=== PATIENT | female | born 1960 | race Asian ===

== ENCOUNTER → 2023-04-22 | Outpatient (CLI) | payer BC, OTHER, SELFPAY ==
[~2023-04-22] MED LIST: ADVA115INH INH; BIOTCAP PO; BLOOD BUILDER PO; CITRTAB18 PO; COEN100C PO; HYALCAP PO; IBUP80TA PO; LOVA1CAP16 PO; METF750T PO; VICO5TAB PO; [UNRECOGNIZED DRUG - CODE] PO; [UNRECOGNIZED DRUG - OTHER] PO
== END ==
LOC: M SOG 09:01
PROVIDERS: ATTEND Orthopaedic Surgery
DX: M40.50 Lordosis, unspecified, site unspecified (principal); M25.511 Pain in right shoulder; M85.811 Other specified disorders of bone density and structure, right shoulder

== ENCOUNTER 2023-07-12 15:08 | Emergency (ER) | payer BC ==
[~2023-07-12] VITALS: Ht 162.6 cm; Wt 62.0 kg
[2023-07-12] MEDS ORDERED: RA T500C2 PO (15:40)
[2023-07-12] MEDS ORDERED: XALA0.007 OU (15:40)
[2023-07-12] MEDS ORDERED: RAMI1CAP24 (15:40)
[2023-07-12 18:52] LABS: BASO % 0.3 % (0.0-1.0); HEMOGLOBIN 13.7 g/dl (12.0-15.5); LYMPH # 0.4 10^3/uL (1.5-5.0); LYMPH % 4.6 % (24.0-44.0); MEAN CORPUSCULAR HEMOGLOBIN 22.5 pg (27.0-33.0); MEAN CORPUSCULAR HGB CONC 31.9 g/dl (32.0-36.5); MEAN CORPUSCULAR VOLUME 70.6 fl (80.0-96.0); MONO # 0.7 10^3/uL (0.0-0.8); MONO % 9.3 % (2.0-8.0); NEUTROPHILS # 6.6 10^3/uL (1.5-8.5); NEUTROPHILS % 85.3 % (36.0-66.0); PLATELET COUNT, AUTOMATED 177 10^3/uL (150-450); RED BLOOD COUNT 6.09 10^6/uL (4.00-5.40); WHITE BLOOD COUNT 7.8 10^3/uL (4.0-10.0)
[2023-07-12 18:56] LABS: RSV AMPLIFICATION NEGATIVE (NEGATIVE)
[2023-07-12 19:20] LABS: CK-MB VALUE MASS < 1.0 NG/ML (<3.6)
[2023-07-12 19:22] LABS: CPK CREATINE PHOSPHOKINASE 56 U/L (34-145); MB/CK RELATIVE INDEX 1.78 (< OR =4)
[2023-07-12] MEDS ORDERED: ACETAMINOPHEN 500 MG TAB PO ONE (19:35)
[2023-07-12] MEDS ORDERED: OSEL75CA PO (19:56)
[2023-07-12] MEDS ORDERED: OSELTAMIVIR PHOSPHATE 75 MG CAP (TAMIFLU) PO ONE (20:00)
[2023-07-12 20:30] VITALS: BP 139/65; TEMP 101; O2SAT 97
== END 2023-07-12 20:36 | disposition home or self-care (01) ==
LOC: M ED 15:08
DX: J09.X9 Influenza due to identified novel influenza A virus with other manifestations (principal); Z11.52 Encounter for screening for COVID-19; E11.9 Type 2 diabetes mellitus without complications; I10 Essential (primary) hypertension; E78.5 Hyperlipidemia, unspecified; Z88.0 Allergy status to penicillin; Z88.6 Allergy status to analgesic agent

== ENCOUNTER → 2024-06-16 | Outpatient (CLI) | payer BC ==
[~2024-06-16] MED LIST changes: +OSEL75CA PO; +RA T500C2 PO; +RAMI5CAP60; +XALA0.007 OU
== END ==
LOC: M WUC 12:25
PROVIDERS: ATTEND Nurse Practitioner Family
DX: J84.10 Pulmonary fibrosis, unspecified (principal)